=== PATIENT | female | born 1980 | race American Indian/Alaskan Native ===

== ENCOUNTER 2018-10-29 01:14 | Emergency (ER) | payer MEDICAID ==
[~2018-10-29] VITALS: Ht 162.6 cm; Wt 127.5 kg
[2018-10-29 01:21] VITALS: Ht 162.6 cm; Wt 127.5 kg
[2018-10-29 04:31] VITALS: BP 116/47
== END 2018-10-29 04:31 | disposition home or self-care (01) ==
LOC: ED 01:14
DX: S83.92XA Sprain of unspecified site of left knee, initial encounter (principal); S93.402A Sprain of unspecified ligament of left ankle, initial encounter; S16.1XXA Strain of muscle, fascia and tendon at neck level, initial encounter; S39.012A Strain of muscle, fascia and tendon of lower back, initial encounter; S50.01XA Contusion of right elbow, initial encounter; W10.8XXA Fall (on) (from) other stairs and steps, initial encounter; Y93.89 Activity, other specified; Y92.89 Other specified places as the place of occurrence of the external cause; Y99.8 Other external cause status
CPT/HCPCS: Q0092